=== PATIENT | male | born 1980 | race Hispanic/Latino ===

== ENCOUNTER → 2019-03-17 | Outpatient (CLI) | payer OTHER ==
[2019-03-17 09:08] LABS: BASOPHILS % (AUTO) 0.7 % (0.0-5.0); EOSINOPHILS % (AUTO) 2.3 % (0.0-8.0); LYMPHOCYTES % (AUTO) 51.8 % (21.0-51.0); MEAN CORPUSCULAR HEMOGLOBIN 28.1 pg (27.0-33.0); MEAN CORPUSCULAR HGB CONC 33.3 g/dL (32.0-36.0); MEAN CORPUSCULAR VOLUME 84.2 fL (79-99); MONOCYTES % (AUTO) 8.8 % (3.0-13.0); NEUTROPHILS % (AUTO) 36.4 % (40.0-77.0); NUCLEATED RED BLOOD CELLS 0.1 % (0.0-0.19); PLATELET COUNT (AUTO) 255 K/uL (130-400); RED BLOOD CELL COUNT(AUTO) 5.22 MIL/uL (4.50-6.20); RED CELL DISTRIBUTION WIDTH 13.3 % (11.0-15.5); WHITE BLOOD COUNT (AUTO) 5.9 K/uL (4.8-10.8)
[2019-03-17 09:35] LABS: ALBUMIN 3.9 g/dL (3.5-5.0); BILIRUBIN,TOTAL 0.6 mg/dL (0.2-1.0); CREATININE 0.9 mg/dL (0.5-1.5); POTASSIUM 3.9 mmol/L (3.5-5.1); THYROID STIMULATING HORMONE 3.53 uIU/mL (0.36-3.74); TOTAL PROTEIN, SERUM 8.4 g/dL (6.0-8.3)
== END | disposition home or self-care (01) ==
LOC: LAB 08:37
PROVIDERS: ATTEND Internal Medicine
DX: Z00.00 Encounter for general adult medical examination without abnormal findings (principal); Z72.51 High risk heterosexual behavior
CPT/HCPCS: 36415; 80053; 80061; 84443; 85025; 86701; 87390

== ENCOUNTER 2019-04-24 22:07 | Emergency (ER) | payer OTHER ==
[2019-04-24] MEDS ORDERED: CEFTRIAXONE SODIUM 1 GM ONE (22:30)
[2019-04-24] MEDS ORDERED: SULFAMETHOX-TMP DS 800/160 TAB ONE (22:32)
[2019-04-24 22:39] LABS: BASOPHILS % (AUTO) 0.8 % (0.0-5.0); EOSINOPHILS % (AUTO) 1.7 % (0.0-8.0); HEMATOCRIT 41.4 % (42-54); LYMPHOCYTES % (AUTO) 37.5 % (21.0-51.0); MEAN CORPUSCULAR HGB CONC 34.9 g/dL (32.0-36.0); MEAN CORPUSCULAR VOLUME 83.1 fL (79-99); MONOCYTES % (AUTO) 8.4 % (3.0-13.0); NEUTROPHILS % (AUTO) 51.6 % (40.0-77.0); NUCLEATED RED BLOOD CELLS 0.1 % (0.0-0.19); PLATELET COUNT (AUTO) 246 K/uL (130-400); RED BLOOD CELL COUNT(AUTO) 4.98 MIL/uL (4.50-6.20); RED CELL DISTRIBUTION WIDTH 13.5 % (11.0-15.5); WHITE BLOOD COUNT (AUTO) 8.5 K/uL (4.8-10.8)
[2019-04-24 22:51] LABS: POTASSIUM 3.9 mmol/L (3.5-5.1)
== END 2019-04-24 23:18 | disposition home or self-care (01) ==
LOC: EDH 22:07
DX: L03.115 Cellulitis of right lower limb (principal); L04.3 Acute lymphadenitis of lower limb
CPT/HCPCS: 36415; 80048; 85025; 96374; 99284; J0696

== ENCOUNTER 2019-05-01 13:19 | Observation (INO) | payer OTHER ==
[~2019-05-01] VITALS: Ht 170.2 cm; Wt 74.0 kg
[2019-05-01] MEDS ORDERED: SODIUM CHLORIDE 0.9% 1000ML 1,000 ML IV ONE ×2 (13:44→17:05)
[2019-05-01 13:48] LABS: BASOPHILS % (AUTO) 0.2 % (0.0-5.0); EOSINOPHILS % (AUTO) 9.8 % (0.0-8.0); HEMATOCRIT 41.8 % (42-54); LYMPHOCYTES % (AUTO) 17.6 % (21.0-51.0); MEAN CORPUSCULAR HEMOGLOBIN 28.9 pg (27.0-33.0); MEAN CORPUSCULAR HGB CONC 34.5 g/dL (32.0-36.0); MEAN CORPUSCULAR VOLUME 83.9 fL (79-99); MONOCYTES % (AUTO) 9.3 % (3.0-13.0); NEUTROPHILS % (AUTO) 63.1 % (40.0-77.0); PLATELET COUNT (AUTO) 181 K/uL (130-400); RED BLOOD CELL COUNT(AUTO) 4.98 MIL/uL (4.50-6.20); RED CELL DISTRIBUTION WIDTH 13.7 % (11.0-15.5); WHITE BLOOD COUNT (AUTO) 5.5 K/uL (4.8-10.8)
[2019-05-01] MEDS ORDERED: ONDANSETRON HCL 4 MG/2 ML VIAL ONE (13:48)
[2019-05-01] MEDS ORDERED: IBUPROFEN 600 MG TABLET ONE (13:48)
[2019-05-01 13:56] LABS: POTASSIUM 4.1 mmol/L (3.5-5.1)
[2019-05-01 14:03] LABS: ALBUMIN 3.7 g/dL (3.5-5.0); BILIRUBIN,TOTAL 0.3 mg/dL (0.2-1.0); TOTAL PROTEIN, SERUM 8.5 g/dL (6.0-8.3)
[2019-05-01 14:03] LABS: APPEARANCE,URINE CLEAR (CLEAR); BILIRUBIN,URINE NEGATIVE (NEGATIVE); COLOR,URINE YELLOW (YELLOW); GLUCOSE, URINE (UA) NEGATIVE (NEGATIVE); KETONES,URINE NEGATIVE (NEGATIVE); LEUKOCYTE ESTERASE ,URINE NEGATIVE (NEGATIVE); NITRATE,URINE NEGATIVE (NEGATIVE); OCCULT BLOOD,URINE NEGATIVE (NEGATIVE); PROTEIN,URINE 30 mg/dL (NEGATIVE); UROBILINOGEN,URINE 0.2 mg/dL (0.2-1.0)
[2019-05-01] MEDS ORDERED: ACETAMINOPHEN EXTRA STRENGTH 500 MG TABLET ONE (14:45)
[2019-05-01] MEDS ORDERED: MORPHINE SULFATE 2 MG/ML 1ML SYG ONE (14:46)
[2019-05-01] MEDS ORDERED: DOXYCYCLINE 100MG+NS 250ML 250 ML IV ONE (17:05)
[2019-05-01] MEDS ORDERED: ONDANSETRON HCL 4 MG/2 ML VIAL IVP PRN (17:30)
[2019-05-01] MEDS ORDERED: ACETAMINOPHEN 325 MG TAB PO PRN ×2 (17:30→18:30)
[2019-05-01] MEDS ORDERED: DOXY100C40 PO (18:24)
[2019-05-01] MEDS ORDERED: SULF1TAB42 PO (18:25)
[2019-05-01] MEDS ORDERED: NAPROXEN 500 MG TABLET PO PRN (18:30)
[2019-05-01] MEDS ORDERED: MAG HYDROX/AL HYDROX/SIMETH ES 30 ML SUSP UDCUP PO PRN (18:30)
[2019-05-01] MEDS ORDERED: DIPHENHYDRAMINE HCL 25 MG CAPSULE PO PRN (18:30)
[2019-05-01] MEDS ORDERED: TRAMADOL HCL 50 MG TABLET PO PRN (18:30)
[2019-05-01] MEDS ORDERED: DiphenhydrAMINE HCL 50 MG/ML VIAL IV PRN (18:30)
[2019-05-01 20:00] VITALS: BP 102/68
[2019-05-01] MEDS: FAMOTIDINE 20MG TAB 20 MG TAB PO SCH (21:38)
[2019-05-01] MEDS: SODIUM CHLORIDE 0.9% 1000ML 1,000 ML IV SCH (21:39)
[2019-05-01] MEDS ORDERED: CEPH500C2 PO (22:14)
[2019-05-01 23:57] VITALS: BP 105/59
[2019-05-02] MEDS: SODIUM CHLORIDE 0.9% 1000ML 1,000 ML IV SCH ×2 (01:25→11:55)
[2019-05-02 04:00] VITALS: BP 103/62
[2019-05-02] MEDS ORDERED: DOXYCYCLINE 100MG+NS 250ML 250 ML IV SCH (05:00)
[2019-05-02 05:08] LABS: HEMATOCRIT 37.2 % (42-54); MEAN CORPUSCULAR HEMOGLOBIN 29.4 pg (27.0-33.0); MEAN CORPUSCULAR VOLUME 84.1 fL (79-99); NUCLEATED RED BLOOD CELLS 0.3 % (0.0-0.19); PLATELET COUNT (AUTO) 162 K/uL (130-400); RED BLOOD CELL COUNT(AUTO) 4.42 MIL/uL (4.50-6.20); RED CELL DISTRIBUTION WIDTH 13.4 % (11.0-15.5); WHITE BLOOD COUNT (AUTO) 5.4 K/uL (4.8-10.8)
[2019-05-02 07:30] VITALS: BP 101/64
[2019-05-02] MEDS ORDERED: METHYLPREDNISOLONE SOD SUCC 40MG/ML 1ML IVP SCH (07:58)
[2019-05-02] MEDS: FAMOTIDINE 20MG TAB 20 MG TAB PO SCH (10:29)
[2019-05-02 11:00] VITALS: BP 117/68
[2019-05-02] MEDS ORDERED: PRED10TA3 PO (13:22)
[2019-05-02] MEDS ORDERED: METHYLPREDNISOLONE SOD SUCC 125MG/2ML VIAL IVP SCH (14:50)
[2019-05-02 16:00] VITALS: BP 113/61
== END 2019-05-02 17:55 | disposition home or self-care (01) ==
LOC: EDH 13:19 → EDHIP 16:48 → 4CH 20:30
PROVIDERS: ADMIT Internal Medicine; ATTEND Internal Medicine
DX: R50.9 Fever, unspecified (principal); R11.2 Nausea with vomiting, unspecified; R94.5 Abnormal results of liver function studies; Z82.49 Family history of ischemic heart disease and other diseases of the circulatory system; Z83.3 Family history of diabetes mellitus; Z79.899 Other long term (current) drug therapy; Z15.09 Genetic susceptibility to other malignant neoplasm
CPT/HCPCS: 36415 ×2; 80053; 81001; 81003; 85025; 85027; 85651; 86757; 87040 ×2; 87804 ×2; 96361 ×2; 96365; 96366; 96375; 96376; 99284; G0378 ×23; J2405 ×2; J2920; J2930; J3490 ×3; J7030 ×2

== ENCOUNTER → 2020-03-18 | Outpatient (CLI) | payer OTHER ==
[~2020-03-18] MED LIST: DOXY100C40 PO; PRED10TA3 PO
[2020-03-18 15:00] LABS: ALBUMIN 3.9 g/dL (3.5-5.0); CREATININE 0.9 mg/dL (0.5-1.5); POTASSIUM 3.8 mmol/L (3.5-5.1); TOTAL PROTEIN, SERUM 8.3 g/dL (6.0-8.3)
== END | disposition home or self-care (01) ==
LOC: LAB 14:19
PROVIDERS: ATTEND Internal Medicine
DX: Z00.00 Encounter for general adult medical examination without abnormal findings (principal); Z13.220 Encounter for screening for lipoid disorders
CPT/HCPCS: 36415; 80053; 80061

== ENCOUNTER → 2023-09-05 | Outpatient (CLI) | payer OTHER ==
[~2023-09-05] MED LIST changes: +DOXY-469 PO; -DOXY100C40 PO
[2023-09-05 08:57] LABS: BASOPHILS # (AUTO) 0.03 K/uL (0.00-0.20); BASOPHILS % (AUTO) 0.6 % (0.0-5.0); EOSINOPHILS # (AUTO) 0.08 K/uL (0.00-0.70); EOSINOPHILS % (AUTO) 1.5 % (0.0-8.0); HEMATOCRIT 43.7 % (42-54); IMMATURE GRANULOCYTE ABSOLUTE 0.02 K/uL (0-1); LYMPHOCYTES # (AUTO) 2.4 K/uL (1.0-4.8); LYMPHOCYTES % (AUTO) 43.8 % (21.0-51.0); MEAN CORPUSCULAR HEMOGLOBIN 28.9 pg (27.0-33.0); MEAN CORPUSCULAR HGB CONC 33.9 g/dL (32.0-36.0); MEAN CORPUSCULAR VOLUME 85.4 fL (79-99); MONOCYTES # (AUTO) 0.6 K/uL (0.1-1.0); MONOCYTES % (AUTO) 11.2 % (3.0-13.0); NEUTROPHILS # (AUTO) 2.3 K/uL (1.8-7.7); NEUTROPHILS % (AUTO) 42.5 % (40.0-77.0); PLATELET COUNT (AUTO) 218 K/uL (130-400); RED BLOOD CELL COUNT(AUTO) 5.12 MIL/uL (4.50-6.20); RED CELL DISTRIBUTION WIDTH 13.2 % (11.0-15.5); WHITE BLOOD COUNT (AUTO) 5.4 K/uL (4.8-10.8)
[2023-09-05 09:21] LABS: HEMOGLOBIN A1C 5.5 % (4.0-6.0)
[2023-09-05 09:45] LABS: ALBUMIN 3.6 g/dL (3.5-5.0); BILIRUBIN,TOTAL 0.4 mg/dL (0.2-1.0); POTASSIUM 4.3 mmol/L (3.5-5.1); THYROID STIMULATING HORMONE 4.09 uIU/mL (0.36-3.74)
[2023-09-05 09:57] LABS: TOTAL PROTEIN, SERUM 8.1 g/dL (6.0-8.3)
== END | disposition home or self-care (01) ==
LOC: LAB 08:24
PROVIDERS: ATTEND Internal Medicine
DX: Z00.00 Encounter for general adult medical examination without abnormal findings (principal); Z13.220 Encounter for screening for lipoid disorders; Z13.1 Encounter for screening for diabetes mellitus; Z13.29 Encounter for screening for other suspected endocrine disorder
CPT/HCPCS: 36415; 80053; 80061; 83036; 84443; 85025

== ENCOUNTER 2023-09-27 06:06 | Day surgery (SDC) | payer OTHER ==
[~2023-09-27] VITALS: Ht 170.2 cm; Wt 74.8 kg
[2023-09-27] VITALS (11 sets, daily range): BP systolic 95–100; BP diastolic 54–72; PULSE 58–72; RESP 14–16
[2023-09-27] MEDS ORDERED: LIDOCAINE HCL 1% 20 ML VIAL ONE (07:13)
[2023-09-27] MEDS ORDERED: PROPOFOL 10 MG/ML 20ML VIAL IV ONE ×2 (07:13→07:23)
== END 2023-09-27 09:38 | disposition home or self-care (01) ==
LOC: ENDO 06:06 → DAH 06:06 → ENDO 09:38
PROVIDERS: ATTEND Internal Medicine Gastroenterology
DX: Z12.11 Encounter for screening for malignant neoplasm of colon (principal); Z80.0 Family history of malignant neoplasm of digestive organs
CPT/HCPCS: 45378; J2704 ×2; A4620; A4215 ×2; A4223; A7002; A4222; A4221; A4663; J7030; A4606; 45385; G0121; J3490

== ENCOUNTER → 2024-09-08 | Outpatient (CLI) | payer OTHER ==
[2024-09-08 08:29] LABS: BASOPHILS # (AUTO) 0.02 K/uL (0.00-0.20); BASOPHILS % (AUTO) 0.4 % (0.0-5.0); EOSINOPHILS # (AUTO) 0.11 K/uL (0.00-0.70); EOSINOPHILS % (AUTO) 2.2 % (0.0-8.0); HEMATOCRIT 41.8 % (42-54); IMMATURE GRANULOCYTE ABSOLUTE 0.02 K/uL (0-1); LYMPHOCYTES # (AUTO) 2.4 K/uL (1.0-4.8); LYMPHOCYTES % (AUTO) 48.6 % (21.0-51.0); MEAN CORPUSCULAR HEMOGLOBIN 28.2 pg (27.0-33.0); MEAN CORPUSCULAR HGB CONC 34.4 g/dL (32.0-36.0); MONOCYTES # (AUTO) 0.6 K/uL (0.1-1.0); MONOCYTES % (AUTO) 11.2 % (3.0-13.0); NEUTROPHILS # (AUTO) 1.8 K/uL (1.8-7.7); NEUTROPHILS % (AUTO) 37.2 % (40.0-77.0); PLATELET COUNT (AUTO) 221 K/uL (130-400); RED CELL DISTRIBUTION WIDTH 12.9 % (11.0-15.5); WHITE BLOOD COUNT (AUTO) 4.9 K/uL (4.8-10.8)
[2024-09-08 08:37] LABS: HEMOGLOBIN A1C 5.5 % (4.0-6.0)
[2024-09-08 08:53] LABS: ALBUMIN 3.4 g/dL (3.5-5.0); BILIRUBIN,TOTAL 0.4 mg/dL (0.2-1.0); CREATININE 0.9 mg/dL (0.5-1.3); POTASSIUM 3.9 mmol/L (3.5-5.1); THYROID STIMULATING HORMONE 3.53 uIU/mL (0.36-3.74); TOTAL PROTEIN, SERUM 7.6 g/dL (6.0-8.3)
== END | disposition home or self-care (01) ==
LOC: LAB 07:33
PROVIDERS: ATTEND Internal Medicine
DX: Z13.1 Encounter for screening for diabetes mellitus (principal); Z13.220 Encounter for screening for lipoid disorders; Z13.29 Encounter for screening for other suspected endocrine disorder; Z00.00 Encounter for general adult medical examination without abnormal findings; Z12.5 Encounter for screening for malignant neoplasm of prostate; M54.50 Low back pain, unspecified; E78.6 Lipoprotein deficiency
CPT/HCPCS: 36415; 80053; 80061; 83036; 84153; 84443; 85025

== ENCOUNTER 2025-03-06 00:26 | Inpatient (IN) | payer OTHER ==
[2025-03-06] VITALS (23 sets, daily range): BP systolic 93–115; BP diastolic 52–75; PULSE 63–88; RESP 15–20; TEMP 97.6–98.5; O2SAT 98–100
[~2025-03-06] VITALS: Ht 170.2 cm; Wt 77.7 kg
[2025-03-06] MEDS: ondanSETRON 4MG INJ IVP ONE (00:49)
[2025-03-06] MEDS: DICYCLOMINE HCL 20 MG TAB PO ONE (00:49)
[2025-03-06] MEDS: 0.9%NACL 1000ML 1,000 ML IV ONE (00:49)
[2025-03-06 00:56] LABS: CREATININE 1.1 mg/dL (0.5-1.3); POTASSIUM 3.1 mmol/L (3.5-5.1)
[2025-03-06] MEDS: metoCLOPRAmide 10 MG/2 ML VIAL IVP ONE (01:06)
--- NOTE | 2025-03-06 01:09 | ERN ---
General Chief Complaint: Abdominal Pain Stated Complaint: ABDOMINAL PAIN Time Seen by MD: 00:28 Time Seen by Midlevel: 00:28 Source: patient History of Present Illness Initial Comments 44-year-old male who presents to the emergency department due to abdominal pain onset 3 hours. Reports lower abdominal cramping, nausea, vomiting denies any fever, dysuria, diarrhea, constipation or further associated symptoms. Denies significant past medical history. Allergies: Coded Allergies: No Known Drug Allergies (Unverified Allergy, Unknown, 04/24/19) Home Meds No Active Prescriptions or Reported Meds ROS Dictation Constitutional: Negative for fever,chills, and weight loss Eyes: Negative for injury, pain,redness, and discharge ENT: Negative for injury,pain or swelling Cardiovascular: Negative for chest pain, palpitations, and edema Respiratory: Negative for shortness of breath, cough, and wheezing, Abdomen/GI: Positive for abdominal pain, nausea, vomiting Negative for diarrhea, and constipation Back: Negative for injury and pain : Negative for painful urination, bleeding or discharge MS/Extremity: Negative for injury and deformity Skin: Negative for rash, and discoloration Neuro: Negative for headache, weakness, numbness, tingling, and seizure Psych: Negative for suicide ideation, homicidal ideation, and hallucinations Physical Exam Physical Exam Dictation General: awake, alert, no acute distress Head/Face: Normocephalic, atraumatic Eyes: PERRL, EOMI, normal conjunctiva ENT: oral cavity clear, oral mucosa moist Neck: Supple, normal range of motion Cardiovascular: RRR, normal S1/S2 Respiratory: CTAB, no respiratory distress Abdomen: Soft, mild right lower quadrant tenderness, non-distended, no guarding or rebound. Skin: Warm, dry, normal turgor, no rash MS/Extremity: Pulses equal, no cyanosis, neurovascular intact, FROM Neuro: COAx4, GCS 15, strength 5/5, CN 2-12 intact, normal cerebellar exam, normal gait Psych: Normal behavior, mood, and affect normal Results Laboratory and Microbiology Lab and Micro Result Laboratory Tests Test 03/06/25 00:38 03/06/25 01:53 White Blood Count 12.6 K/uL (4.8-10.8) H Red Blood Count 4.85 MIL/uL (4.50-6.20) Hemoglobin 14.6 g/dL (14.0-18.0) Hematocrit 41.6 % (42-54) L Mean Corpuscular Volume 85.8 fL (79-99) Mean Corpuscular Hemoglobin 30.1 pg (27.0-33.0) Mean Corpuscular Hemoglobin Concent 35.1 g/dL (32.0-36.0) Red Cell Distribution Width 13.2 % (11.0-15.5) Platelet Count 260 K/uL (130-400) Mean Platelet Volume 10.7 fL (7.5-10.5) H Immature Granulocyte % (Auto) 0.3 % (0-1) Neutrophils (%) (Auto) 71.7 % (40.0-77.0) Lymphocytes (%) (Auto) 20.1 % (21.0-51.0) L Monocytes (%) (Auto) 7.2 % (3.0-13.0) Eosinophils (%) (Auto) 0.4 % (0.0-8.0) Basophils (%) (Auto) 0.3 % (0.0-5.0) Neutrophils # (Auto) 9.0 K/uL (1.8-7.7) H Lymphocytes # (Auto) 2.5 K/uL (1.0-4.8) Monocytes # (Auto) 0.9 K/uL (0.1-1.0) Eosinophils # (Auto) 0.05 K/uL (0.00-0.70) Basophils # (Auto) 0.04 K/uL (0.00-0.20) Absolute Immature Granulocyte (auto 0.04 K/uL (0-1) Nucleated Red Blood Cells 0.0 % (0.0-0.19) Sodium Level 138 mmol/L (136-145) Potassium Level 3.1 mmol/L (3.5-5.1) L Chloride Level 99 mmol/L (101-111) L Carbon Dioxide Level 30 mmol/L (21-32) Blood Urea Nitrogen 19 mg/dL (7-18) H Creatinine 1.1 mg/dL (0.5-1.3) Glomerular Filtration Rate Calc 84 mL/min (>90) Random Glucose 141 mg/dL (70-105) H Total Calcium 9.1 mg/dL (8.5-10.1) Urine Color COLORLESS (YELLOW) Urine Appearance CLEAR (CLEAR) Urine pH 6.0 (5.0-8.0) Urine Specific [place] >1.050 (1.001-1.031) Urine Protein NEGATIVE mg/dL (NEGATIVE) Urine Glucose (UA) NEGATIVE mg/dL (NEGATIVE) Urine Ketones NEGATIVE mg/dL (NEGATIVE) Urine Occult Blood NEGATIVE (NEGATIVE) Urine Nitrate NEGATIVE (NEGATIVE) Urine Bilirubin NEGATIVE mg/dL (NEGATIVE) Urine Urobilinogen 0.2 mg/dL (0.2-1.0) Urine Leukocyte Esterase NEGATIVE Taylor/uL Urine RBC None /HPF (0-1) Urine WBC 0-1 /HPF (0-1) Urine Bacteria None /HPF (None Seen) Labs Reviewed?: Yes MDM MDM: Differential diagnosis: Colitis, appendicitis, UTI Rationale: 44-year-old male who presents to the emergency department due to abdominal pain onset 3 hours. Reports lower abdominal cramping, nausea, vomiting denies any fever, dysuria, diarrhea, constipation or further associated symptoms. Denies significant past medical history. Patient received Bentyl and Zofran. Labs obtained leukocytosis of 12.6, h ypokalemia 3.1, hypochloremia 99. UA negative for urinary tract infection. Patient continued with emesis and pain therefore Reglan and ketorolac administered. CT abdomen and pelvis obtained indicating early appendicitis. Patient was administered Zosyn. Patient was educated on findings, diagnosis, decision for admission. Patient verbalized understanding and agrees with admission. General surgeon Dr. Rodriguez consulted, who recommended keeping the patient NPO and he would be performing surgery in the morning. Case discussed with Dr. Henry who accepts admission. Previous outside records reviewed: Old ER visits. Risk of complication and/or morbidity or mortality of patient management: None Medications-Per medication reconciliation Need for hospitalization: Patient does meet criteria for hospitalization. Need for emergency major/minor surgery: No There are no social concerns with this patient. Prescription drug management Prescriptions will include symptomatic care Patient's prior external medical records from other ER visits were reviewed by me as indicated. Prior testing and results from previous visits were reviewed. Prior tests were taken into account with medical decision making and resource utilization, independent historian/historians were used to obtain complete medical history. I independently interpreted the test that were performed, results were reviewed by me and considered findings on radiology if ordered. Medical management and examination interpretation discussions were had by me with other qualified healthcare professionals as indicated for the patient's care. ED Course Orders Procedure Category Date Status Time Cbc With Differential LAB 03/06/25 Complete 00:28 Basic Metabolic Panel LAB 03/06/25 Complete 00:28 Urinalysis LAB 03/06/25 Complete W/Microscopic 00:28 Ct Abdomen/Pelvis CT 03/06/25 Taken W/Contrast 00:33 Ondansetron 4mg Inj PHA 03/06/25 Complete (Zofran 4mg Inj) 01:00 0.9%Nacl 1000ml (Ns PHA 03/06/25 Complete 1000ml) 01:00 Dicyclomine Hcl PHA 03/06/25 Complete (Bentyl 20mg Tab) 01:00 Metoclopramide 10 PHA 03/06/25 Complete Mg/2 Ml Vial (Reglan 1 01:00 Iohexol (Omnipaque) PHA 03/06/25 Complete 01:12 Ketorolac PHA 03/06/25 Complete Tromethamine 15mg/Ml 01:30 Zosyn 3.375gm+Ns 50ml PHA 03/06/25 In Process (Zosyn 3.375gm+Ns 03:00 Current Medications Medications (Trade) Dose Ordered Sig/Laila Route PRN Reason Start Time Stop Time Status Last Admin Dose Admin Dicyclomine HCl (Bentyl 20mg Tab) 20 mg ONCE ONCE PO 03/06/25 01:00 03/06/25 01:01 DC 03/06/25 00:49 Iohexol (Omnipaque) 35,000 mg STK-MED ONCE IV 03/06/25 01:12 03/06/25 01:12 DC Ketorolac Tromethamine (toRADol) 15 mg ONCE ONCE IV 03/06/25 01:30 03/06/25 01:31 DC 03/06/25 01:25 Metoclopramide HCl (regLAN 10MG IV) 10 mg ONCE ONCE IVP 03/06/25 01:00 03/06/25 01:01 DC 03/06/25 01:06 Ondansetron HCl (zoFRAN 4MG INJ) 4 mg ONCE ONCE IVP 03/06/25 01:00 03/06/25 01:01 DC 03/06/25 00:49 Piperacillin Sod/ Tazobactam Sod (Zosyn 3.375gm+NS 50ml) 3.375 gm ONCE ONCE IVPB 03/06/25 03:00 03/06/25 03:01 03/06/25 02:48 Sodium Chloride 1,000 ml @ 0 mls/hr ONCE ONCE IV 03/06/25 01:00 03/06/25 01:01 DC 03/06/25 00:49 Vital Signs Date Time Temp Pulse Resp B/P (MAP) Pulse Ox O2 Delivery O2 Flow Rate FiO2 03/06/25 01:45 98.4 88 18 113/42 99 Room Air* 0 21 DX & DISP Disposition: Inpatient Departure Impression: Primary Impression: Appendicitis Condition: Stable Scripts No Active Prescriptions or Reported Meds Referrals: LEVI HENRY MD (PCP) I performed the substantive portion of the visit. I have reviewed and personally made and approve the management plan that is documented in the notes by myself or the VICKEY. I acknowledge full responsibility for the patient's management plan. CARMEN CALDERON March 06, 2025 01:09
[2025-03-06] MEDS ORDERED: IOHEXOL 350 MG/ML 100ML INFUS..BTL IV ONE (01:12)
[2025-03-06] MEDS: ketOROlac 15MG/ML VIAL (15MG/ML) IV ONE (01:25)
[2025-03-06 01:42] LABS: BASOPHILS # (AUTO) 0.04 K/uL (0.00-0.20); BASOPHILS % (AUTO) 0.3 % (0.0-5.0); EOSINOPHILS # (AUTO) 0.05 K/uL (0.00-0.70); EOSINOPHILS % (AUTO) 0.4 % (0.0-8.0); HEMATOCRIT 41.6 % (42-54); IMMATURE GRANULOCYTE ABSOLUTE 0.04 K/uL (0-1); LYMPHOCYTES # (AUTO) 2.5 K/uL (1.0-4.8); LYMPHOCYTES % (AUTO) 20.1 % (21.0-51.0); MEAN CORPUSCULAR HEMOGLOBIN 30.1 pg (27.0-33.0); MEAN CORPUSCULAR HGB CONC 35.1 g/dL (32.0-36.0); MEAN CORPUSCULAR VOLUME 85.8 fL (79-99); MONOCYTES # (AUTO) 0.9 K/uL (0.1-1.0); MONOCYTES % (AUTO) 7.2 % (3.0-13.0); NEUTROPHILS % (AUTO) 71.7 % (40.0-77.0); PLATELET COUNT (AUTO) 260 K/uL (130-400); RED BLOOD CELL COUNT(AUTO) 4.85 MIL/uL (4.50-6.20); RED CELL DISTRIBUTION WIDTH 13.2 % (11.0-15.5); WHITE BLOOD COUNT (AUTO) 12.6 K/uL (4.8-10.8)
[2025-03-06 02:04] LABS: APPEARANCE,URINE CLEAR (CLEAR); BILIRUBIN,URINE NEGATIVE (NEGATIVE); COLOR,URINE COLORLESS (YELLOW); GLUCOSE, URINE (UA) NEGATIVE (NEGATIVE); KETONES,URINE NEGATIVE (NEGATIVE); LEUKOCYTE ESTERASE ,URINE NEGATIVE Leu/uL (NEGATIVE); MUCUS,URINE RARE LPF (None Seen); NITRATE,URINE NEGATIVE (NEGATIVE); OCCULT BLOOD,URINE NEGATIVE (NEGATIVE); PROTEIN,URINE NEGATIVE (NEGATIVE); UROBILINOGEN,URINE 0.2 mg/dL (0.2-1.0); WBC,URINE 0-1 /HPF (0-1)
[2025-03-06] MEDS: ZOSYN 3.375GM +NS 50ML IVPB ONE (02:48)
[2025-03-06] MEDS ORDERED: acetaMINOPHEN 325 MG TAB PO PRN (03:00)
[2025-03-06] MEDS ORDERED: ondanSETRON 4MG INJ IVP PRN (03:00)
[2025-03-06] MEDS ORDERED: morPHINE 2 MG SYG IVP PRN (03:00)
[2025-03-06] MEDS: 0.9%NACL 1000ML 1,000 ML IV SCH (03:12)
[2025-03-06] MEDS ORDERED: MULT-1367 PO (03:17)
[2025-03-06] MEDS: PoTASSium chloRIDE 20MEQ/100ML 100 ML IV PRN (06:41)
[2025-03-06] MEDS ORDERED: NEOSTIGMINE METHYLSULFATE 1MG/ML IV ONE (07:52)
[2025-03-06] MEDS ORDERED: LIDOCAINE PF 100MG/5ML (2%) SYRINGE 5ML ONE (07:52)
[2025-03-06] MEDS ORDERED: GLYCOPYRROLATE 0.2 MG/ML 5 ML VIAL ONE (07:52)
[2025-03-06] MEDS ORDERED: SUCCINYLCHOLINE CHLORIDE 20 MG/ML 10 ML VIAL ONE (07:52)
[2025-03-06] MEDS ORDERED: dexaMETHasone SOD PHOSPHATE 10MG/ML 1ML VIAL ONE (07:52)
[2025-03-06] MEDS ORDERED: ondanSETRON 4MG INJ ONE (07:52)
[2025-03-06] MEDS ORDERED: FENTanyl CITRate PF 50 MCG/1 ML 2ML VIAL ONE ×2 (07:53→09:20)
[2025-03-06] MEDS ORDERED: proPOFol 10 MG/ML 20ML VIAL IV ONE (07:53)
[2025-03-06] MEDS ORDERED: rocuRONium bROMide 10MG/1ML 5ML VL ONE (07:53)
[2025-03-06] MEDS ORDERED: MIDAZOLAM HCL 1 MG/ML 2ML VIAL ONE (07:54)
--- NOTE | 2025-03-06 08:29 | HMCIMG ---
Exam Type: CT ABDOMEN/PELVIS W/CONTRAST Clinical Information: Lower abdominal pain Comparison: None Contrast: 100 cc's Isovue 370 IV, no complications or adverse reactions CT Dose Index (CTDI): 31.60 mGy Dose Length Product (DLP): 1740.80 total mGy-cm Findings: No evidence of nephro or ureterolithiasis is found. No hydronephrosis or ureteral dilatation is seen. The lung bases are clear. The stomach is unremarkable. It shows no wall thickening. No gross ulceration is seen. It is not overly distended. There are no surrounding inflammatory changes. No wall lesions are identified to suggest cancer. The spleen is unremarkable. It is not enlarged. The pancreas shows normal anatomy. It is not fatty replaced. It shows no lesions. The pancreatic duct is not dilated. The gallbladder is unremarkable. It shows no cholelithiasis. The gallbladder wall is normal in thickness. There is no pericholecystic fluid. The is no acute or chronic inflammation noted. The adrenal glands are unremarkable. There is no enlargement. No lesions are noted. The liver is unremarkable. It shows no focal masses. Distention of the appendix is seen consistent with acute early appendicitis without perforation. Appendix is retrocecal product superiorly. The small bowel is unremarkable. There is no evidence of dilatation to suggest obstruction. No evidence of adynamic ileus is seen. There is no small bowel wall thickening to suggest enteritis. The colon is unremarkable. The urinary bladder is unremarkable. There is no wall thickening to suggest tumor or inflammation. There are no intraluminal calculi. There are no diverticula. There is no evidence of chronic bladder outlet obstruction. There is no evidence of urinary bladder distention to suggest urinary retention. The other pelvic structures are unremarkable. The bony and vascular structures are unremarkable for the patient's age. Left inguinal and clinical hernias are seen containing only peritoneal fat. IMPRESSION: Acute appendicitis without perforation. This study was performed using dose reduction techniques to include automated exposure control and/or adjustment of the mA and/or kV according to patient size.
[2025-03-06] MEDS ORDERED: SUGAMMADEX SODIUM 200 MG/2 ML VIAL IV ONE (09:29)
[2025-03-06] MEDS: BUPIvacaine/PF 0.5% 30ML VIAL ONE (09:35)
--- NOTE | 2025-03-06 09:44 | OP ---
Operative Note: DATE OF PROCEDURE: 03/06/25 SURGEON: RAFFY CRAMER MD SHIPS EQUIPMENT ENGINEER: [] ANESTHESIA: [] General ANESTHESIOLOGIST/BASKETBALL SCOUT: [] PREOPERATIVE DIAGNOSIS: [] Acute appendicitis POSTOPERATIVE DIAGNOSIS: [] The same SYNOPSIS: [] PROCEDURE: [] Laparoscopic appendectomy ESTIMATED BLOOD LOSS: [] None INDICATIONS: [] DESCRIPTION OF PROCEDURE: [] With the patient prepped and draped in usual fashion supraumbilical incision was done. Using direct technique I was able to place a balloon trocar and abdomen insufflated. Two 5 mm trochars were inserted under direct vision in the lower abdomen. Immediately we identified an inflamed appendix and a window was created in the base and the appendix. Using a laparoscopic 45 mm MALLORY white stapler I transected the base of appendix. I used a reload to transect the mesoappendix. The appendix was placed in a bag. After adequate hemostasis and irrigation in the area I remove all the trochars under direct vision and the appendix through the supraumbilical incision. The fascia was closed with the 0 Vicryl [id number]. All incisions were closed with monocryl 4-0 and dermabon. I placed 20 cc of local. Patient tolerated procedure without complication RAFFY CRAMER MD March 06, 2025 09:44
--- NOTE | 2025-03-06 09:52 | HP ---
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 PAIN IS DESCRIBED ABDOMINAL CRAMPING ASSOCIATED WITH NAUSEA AND VOMITING. HE DENIES ANY FEVERS, CHILLS, DIARRHEA, DYSURIA, CONSTIPATION. HE DENIES ANY PREVIOUS EPISODES OF SIMILAR SYMPTOMS IN THE PAST. NO CHANGE IN RECENT CHANGES IN HIS DIET AND HAD O/W BEEN DOING FAIRLY WELL UP UNTIL THIS ACUTE EIPOSIDE. PAST MEDICAL HISTORY: NONE SOCIAL HISTORY: LIVES LOCALLY WITH HIS NO ALCOHOL TOBACCO OR DRUG ABUSE ^ FAMILY HISTORY: DM COLON CANCER AND HTN ^ Patient History: Carcinomas MOTHER (UTERINE,BREAST ) BROTHER, Name: GUILLE MARIA , , Age: 37, Cause: Colon cancer Diabetes mellitus BROTHER, Name: MARBIN MARIA Hypertension BROTHER, Name: MARBIN MARIA Allergies: Coded Allergies: No Known Drug Allergies (Unverified Allergy, Unknown, 04/24/19) Scheduled Multivitamin (Multivitamin), 1 TAB PO DAILY, (Reported) Review of Systems Normal Constitutional:, Normal Eyes:, Normal Ear/Nose/Mouth/Throat, Normal Cardiovascular:, Normal Respiratory:, Normal Genitourinary:, Normal Integumentary:, Normal Musculoskeletal:, Normal Neurological:, Normal Psychological:, Normal Endocrine:, Normal Hematologic/Lymphatic:, Normal Allergic/Immunologic:; Abnormal Gastrointestinal: (REFER TO HPI) Physical Exam Vital Signs Vital Signs Date Time Temp Pulse Resp B/P (MAP) Pulse Ox O2 Delivery O2 Flow Rate FiO2 03/06/25 01:45 98.4 88 18 113/42 99 Room Air* 0 21 Appearance: Well dev, well nourished Eyes: Clear, PERRL, EOM Normal Ear/Nose/Mouth/Throat: Landmarks WNL, Oropharynx WNL Cardiovascular: Regular Rate, Regular Rhythm Respiratory: No Retractions, Lungs clear G.I.: No rebound tenderness, Abnormal (TENDER RLQ) Musculoskeletal: Gait WNL, Normal ROM, Strength/Tone WNL Skin: No rash/ulcers Neurology: Nerves I-XII intact, Sensation WNL Psychology: Insight WNL, Orientation WNL, Memory WNL, Affect WNL Diagnostics Laboratory Tests Test 03/06/25 00:38 03/06/25 01:53 Range/Units White Blood Count 12.6 4.8-10.8 K/uL Red Blood Count 4.85 4.50-6.20 MIL/uL Hemoglobin 14.6 14.0-18.0 g/dL Hematocrit 41.6 42-54 % Mean Corpuscular Volume 85.8 79-99 fL Mean Corpuscular Hemoglobin 30.1 27.0-33.0 pg Mean Corpuscular Hemoglobin Concent 35.1 32.0-36.0 g/dL Red Cell Distribution Width 13.2 11.0-15.5 % Platelet Count 260 130-400 K/uL Mean Platelet Volume 10.7 7.5-10.5 fL Immature Granulocyte % (Auto) 0.3 0-1 % Neutrophils (%) (Auto) 71.7 40.0-77.0 % Lymphocytes (%) (Auto) 20.1 21.0-51.0 % Monocytes (%) (Auto) 7.2 3.0-13.0 % Eosinophils (%) (Auto) 0.4 0.0-8.0 % Basophils (%) (Auto) 0.3 0.0-5.0 % Neutrophils # (Auto) 9.0 1.8-7.7 K/uL Lymphocytes # (Auto) 2.5 1.0-4.8 K/uL Monocytes # (Auto) 0.9 0.1-1.0 K/uL Eosinophils # (Auto) 0.05 0.00-0.70 K/uL Basophils # (Auto) 0.04 0.00-0.20 K/uL Absolute Immature Granulocyte (auto 0.04 0-1 K/uL Nucleated Red Blood Cells 0.0 0.0-0.19 % Sodium Level 138 136-145 mmol/L Potassium Level 3.1 3.5-5.1 mmol/L Chloride Level 99 101-111 mmol/L Carbon Dioxide Level 30 21-32 mmol/L Blood Urea Nitrogen 19 7-18 mg/dL Creatinine 1.1 0.5-1.3 mg/dL Glomerular Filtration Rate Calc 84 >90 mL/min Random Glucose 141 70-105 mg/dL Total Calcium 9.1 8.5-10.1 mg/dL Urine Color COLORLESS YELLOW Urine Appearance CLEAR CLEAR Urine pH 6.0 5.0-8.0 Urine Specific [place] >1.050 1.001-1.031 Urine Protein NEGATIVE NEGATIVE mg/dL Urine Glucose (UA) NEGATIVE NEGATIVE mg/dL Urine Ketones NEGATIVE NEGATIVE mg/dL Urine Occult Blood NEGATIVE NEGATIVE Urine Nitrate NEGATIVE NEGATIVE Urine Bilirubin NEGATIVE NEGATIVE mg/dL Urine Urobilinogen 0.2 0.2-1.0 mg/dL Urine Leukocyte Esterase NEGATIVE NEGATIVE Taylor/uL Urine RBC None 0-1 /HPF Urine WBC 0-1 0-1 /HPF Urine Bacteria None None Seen /HPF Assessment/Plan Assessment/Plan ASSESSMENT: THIS IS A 44 YR OLD MAN WITH NO SIGNIFICANT PMH HE PRESENTED WITH ACUTE APPENDICITIS PLAN: KEEP NPO HYDRATE WITH IVF ANALGESICS AND ANTI EMETICS PRN GNS CONSULTED IN ER SUPPLEMENT ELECTROLYTES NEEDED SUPPORTIVE MEASURES LEVI RYDER MD March 06, 2025 09:52
[2025-03-06] MEDS: ZOSYN 3.375GM +NS 50ML IVPB SCH (10:53)
[2025-03-06] MEDS ORDERED: 0.9%NACL 50ML IV SCH (11:00)
[2025-03-06] MEDS ORDERED: MAG/ALUM/SIMETH 30 ML UDCUP PO PRN (12:30)
[2025-03-06] MEDS ORDERED: PoTASSium chl 10% ELIXIR 20MEQ 20 MEQ/15 ML UDCUP PO PRN (12:30)
[2025-03-06] MEDS ORDERED: traMADol HCL 50 MG TABLET PO PRN ×2 (12:30)
[2025-03-06] MEDS ORDERED: LACTULOSE 20 GM/30 ML UDCUP PO PRN (12:30)
[2025-03-06] MEDS ORDERED: PoTASSium chloRIDE 20MEQ/100ML 100 ML IV PRN ×2 (12:30)
[2025-03-06] MEDS: ketOROlac 30MG VIAL (30MG/ML) IVP PRN (19:01)
[2025-03-06] MEDS: FAMOTIDINE 20MG TAB PO SCH (20:59)
[2025-03-07] VITALS: BP 92/49; PULSE 77; RESP 17; TEMP 97.8
[2025-03-07 04:00] VITALS: BP 95/57; PULSE 68; RESP 17; TEMP 97.7
[2025-03-07 05:57] LABS: MEAN CORPUSCULAR HEMOGLOBIN 28.9 pg (27.0-33.0); MEAN CORPUSCULAR HGB CONC 33.3 g/dL (32.0-36.0); MEAN CORPUSCULAR VOLUME 86.7 fL (79-99); RED BLOOD CELL COUNT(AUTO) 4.5 MIL/uL (4.50-6.20); RED CELL DISTRIBUTION WIDTH 13.4 % (11.0-15.5); WHITE BLOOD COUNT (AUTO) 7.8 K/uL (4.8-10.8)
[2025-03-07 06:06] LABS: CREATININE 0.9 mg/dL (0.5-1.3); POTASSIUM 3.7 mmol/L (3.5-5.1)
[2025-03-07 07:39] VITALS: BP 120/68; PULSE 63; RESP 19; TEMP 98.4
[2025-03-07 08:00] VITALS: O2SAT 99
[2025-03-07] MEDS: PoTASSium chloRIDE 20MEQ ER 20 MEQ ERTAB PO PRN (08:44)
--- NOTE | 2025-03-07 10:17 | DS ---
DISCHARGE SUMMARY Date of Visit: March 07, 2025 Time of Visit: 10:17 ADMISSION DATE: March 06, 2025 at 02:50 DISCHARGE DATE: March 07, 2025 ATTENDED PHYSICIAN: Levi Henry MD DISCHARGE DIAGNOSIS: ACUTE APPENDICITIS S/P LAPAROSCOPIC APPENDECTOMY 03/06/2025 MACHINE CLOTHING MAN(S): DR CRAMER - [facility] PROCEDURES: Laparoscopic appendectomy DATE OF PROCEDURE: 03/06/25 SURGEON: RAFFY CRAMER MD PRE AND POST OPERATIVE DIAGNOSIS: Acute appendicitis COMPLICATIONS : NONE RADIOLOGY: CT ABDOMEN/PELVIS W/CONTRAST Findings: No evidence of nephro or ureterolithiasis is found. No hydronephrosis or ureteral dilatation is seen. The lung bases are clear. The stomach is unremarkable. It shows no wall thickening. No gross ulceration is seen. It is not overly distended. There are no surrounding inflammatory changes. No wall lesions are identified to suggest cancer. The spleen is unremarkable. It is not enlarged. The pancreas shows normal anatomy. It is not fatty replaced. It shows no lesions. The pancreatic duct is not dilated. The gallbladder is unremarkable. It shows no cholelithiasis. The gallbladder wall is normal in thickness. There is no pericholecystic fluid. The is no acute or chronic inflammation noted. The adrenal glands are unremarkable. There is no enlargement. No lesions are noted. The liver is unremarkable. It shows no focal masses. Distention of the appendix is seen consistent with acute early appendicitis without perforation.Appendix is retrocecal product superiorly. The small bowel is unremarkable. There is no evidence of dilatation to suggest obstruction. No evidence of adynamic ileus is seen. There is no small bowel wall thickening to suggest enteritis.The colon is unremarkable. The urinary bladder is unremarkable. There is no wall thickening to suggest tumor or inflammation. There are no intraluminal calculi. There are no diverticula. There is no evidence of chronic bladder outlet obstruction. There is no evidence of urinary bladder distention to suggest urinary retention. The other pelvic structures are unremarkable. The bony and vascular structures are unremarkable for the patient's age. Left inguinal and clinical hernias are seen containing only peritoneal fat. IMPRESSION: Acute appendicitis without perforation. 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 HE WAS HYDRATED WITH IVF, KEPT NPO AND COVERED WITH IV ANTIBIOTICS. HE WAS EVALUATED BY DR CRAMER IN GNS AND HAD A LAPAROSCOPIC APPENDECTOMY 03/06/2025. HE DID WELL OVER NIGHT AND DIET AND ACTIVITY WERE ADVANCED WITHOUT DIFFICULTY AND DISCHARGED IN STABLE CONDITION. DIET: HEART HEALTHY ACTIVITY: AT BERENICE BUT NO HEAVY LIFTING FOR 2 WEEKS CONDITION: STABLE EQUIPMENT: NONE FOLLOW UP APPOINTMENT(S): DR HENRY IN 2-[address] CRAMER 1-2 WEEKS DISPOSITION: HOME CODE STATUS: FULL MEDICATION RECONCILIATION : TYLENOL 500 MG PO Q 6 HRS PRN * Home Meds Reported Medications Multivitamin (Multivitamin) 1 Each Tablet, 1 TAB PO DAILY for 30 Days, #30 TAB 0 Refills 03/06/25 LEVI HENRY MD March 07, 2025 10:17
--- NOTE | 2025-03-07 15:06 | NUR ---
DC INSTRUCTIONS PROVIDED TO PATIENT . PATIENT VERBALIZED UNDERSTANDING .. DR CRAMER CAME TO SEE PATIENT WELL. INCISIONS CLEAN AND DRY
--- NOTE | 2025-03-10 11:05 | NUR ---
Transitional Phone Call Spoke to patient, states "doing great, doing fine." States the follow up appointment is set for PCP - Dr. Henyr is tomorrow 03/11/2025 and the follow up appointment with surgeon - Dr. Jacobs is nexr Sunday03/20/2025. No question or concerns at this time.
== END 2025-03-07 14:40 | disposition home or self-care (01) | DRG 399 ==
LOC: EDH 00:26 → EDHIP 02:50 → 4DH 03:46
PROVIDERS: ADMIT Internal Medicine; ATTEND Internal Medicine
PROC: 0DTJ4ZZ Resection of Appendix, Percutaneous Endoscopic Approach (ICD-10-PCS; principal; 2025-03-06 09:01)
DX: K35.890 Other acute appendicitis without perforation or gangrene (principal); I10 Essential (primary) hypertension; Z83.3 Family history of diabetes mellitus; Z80.0 Family history of malignant neoplasm of digestive organs; Z82.49 Family history of ischemic heart disease and other diseases of the circulatory system
CPT/HCPCS: 36415; 74177; 80048; 81001; 84132; 85025; 85027; 99285; G0378; J0330; J1100; J1885; J2003; J2250; J2405; J2543; J2704; J2710; J2765; J3010; J3480; J3490; J7030; J7120; Q9967; A4213; A4215; A4216; A4221; A4222; A4223; A4600; A4649; A4663; A4930; C1769; J0665

== ENCOUNTER → 2025-09-14 | Outpatient (CLI) | payer OTHER ==
[~2025-09-14] MED LIST changes: -DOXY-469 PO; +MULT-1367 PO; -PRED10TA3 PO
[2025-09-14 08:16] LABS: IMMATURE GRANULOCYTE ABSOLUTE 0.01 K/uL (0-1); NUCLEATED RED BLOOD CELLS 0.0 % (0.0-0.19); PLATELET COUNT (AUTO) 221 K/uL (130-400); RED BLOOD CELL COUNT(AUTO) 5.14 MIL/uL (4.50-6.20); RED CELL DISTRIBUTION WIDTH 13.0 % (11.0-15.5); WHITE BLOOD COUNT (AUTO) 5.3 K/uL (4.8-10.8)
[2025-09-14 08:28] LABS: ASPARTATE AMINOTRANSFERASE 30.0 U/L (10-37); CREATININE 0.9 mg/dL (0.5-1.3); GLOMERULAR FILTR. RATE CALC 106.0 mL/min (>90); GLUCOSE,RANDOM 110.0 mg/dL (70-105); LDL DIRECT 79.0 mg/dL (0-99); SODIUM SERUM 136.0 mmol/L (136-145); TOTAL PROTEIN, SERUM 7.9 g/dL (6.0-8.3); UREA NITROGEN, BLOOD 19.0 mg/dL (7-18)
== END | disposition home or self-care (01) ==
LOC: LAB 07:34
PROVIDERS: ATTEND Internal Medicine
DX: Z12.5 Encounter for screening for malignant neoplasm of prostate (principal); E78.2 Mixed hyperlipidemia
CPT/HCPCS: 36415; 80053; 80061; 84153; 85025